=== PATIENT | female | born 1930 | race Caucasian/White ===

== ENCOUNTER → 2016-10-19 | Outpatient (CLI) | payer OTHER ==
[2016-10-19 08:28] LABS: CREATININE 0.9 mg/dL (0.6-1.0)
== END ==
LOC: CAT 07:03
PROVIDERS: Internal Medicine Cardiovascular Disease
DX: I71.2 Thoracic aortic aneurysm, without rupture (principal)

== ENCOUNTER → 2017-04-17 | Outpatient (CLI) | payer OTHER | LOC: CV 09:46 → RAD 09:46 | DX: Z12.31 Encounter for screening mammogram for malignant neoplasm of breast (principal); N95.9 Unspecified menopausal and perimenopausal disorder; R07.2 Precordial pain; Z78.0 Asymptomatic menopausal state ==

== ENCOUNTER → 2018-08-14 | Outpatient (CLI) | payer OTHER ==
--- NOTE | 2018-08-14 16:21 | 2DMMODE ---
[facility] [address] [place] [address] 2 D/M-MODE ECHOCARDIOGRAM Name: LULU AVERY Room #: REG [facility]#: [id number] ������������� Admission: 08/14/18 ������������� Attend Phys: Julien Douglass, Discharge: ��� ������������� ��� Date of : 34 Date of Service: 08/14/18 1621 �� Report #: [id number] �������� ��������������������������������������������[id number] THIS REPORT FOR: //name// APPROVED REPORT Study performed: 08/14/2018 10:09:20 EXAM: Comprehensive 2D, Doppler, and color-flow Echocardiogram Patient Location: Out-Patient Status: routine BSA: 1.59 HR: 64 bpm BP: 120/84 mmHg Rhythm: NSR Other Information Study Quality: Adequate Indications Congestive Heart Failure Atrial Fibrillation Aortic aneurysm. 2D Dimensions RVDd: 27.76 mm IVSd: 11.16 (7-11mm) LVOT Diam: 22.06 (18-24mm) LVDd: 53.91 mm PWd: 11.14 (7-11mm) Ascending Ao: 42.28 (22-36mm) LVDs: 36.82 (25-40mm) Aortic Root: 38.78 mm Volumes Left Atrial Volume (Systole) Single Plane 4CH: 78.61 mL Single Plane 2CH: 98.47 mL LA ESV Index: 59.00 mL/m2 Aortic Valve AoV Peak Nathan.: 1.28 m/s AO Peak Gr.: 6.54 mmHg LVOT Max P.36 mmHg LVOT Max V: 1.26 m/s YOVANA Vmax: 3.77 cm2 Mitral Valve E/A Ratio: 1.4 [facility] [address] [place] [address] 2 D/M-MODE ECHOCARDIOGRAM Name: LULU AVERY Room #: REG [facility]#: [id number] ������������� Admission: 08/14/18 ������������� Attend Phys: Julien Douglass, Discharge: ��� ������������� ��� Date of : 34 Date of Service: 08/14/18 1621 �� Report #: [id number] �������� ��������������������������������������������[id number] MV Decel. Time: 184.71 ms MV E Max Nathan.: 1.13 m/s MV A Nathan.: 0.78 m/s MV PHT: 53.57 ms IVRT: 92.27 ms Pulmonary Vein P Vein S: 0.64 m/s P Vein D: 0.50 m/s P Vein S/D Ratio: 1.28 Tricuspid Valve TR Peak Nathan.: 2.44 m/s RAP Estimate: 5.00 mmHg TR Peak Gr.: 23.89 mmHg PA Pressure: 29.00 mmHg Left Ventricle The left ventricle is normal size. There is normal LV segmental wall motion. Mild basal septal hypertrophy is present. Left ventricular systolic function is normal. LVEF is 60-65%. Left ventricular filling pattern is normal for age. Right Ventricle The right ventricle is normal size. The right ventricular systolic function is normal. Atria Left atrium is moderately dilated. The right atrium size is normal. Aortic Valve Aortic valve is trileaflet. Mild aortic regurgitation. There is no aortic valvular stenosis. Mitral Valve Mitral valve leaflets are moderately thickened. 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 Mild bi-leaflet mitral valve prolapse. Tricuspid Valve The tricuspid valve is normal in structure. Mild tricuspid regurgitation. Estimated PAP is 30mmHg. Pulmonic Valve The pulmonary valve is normal in structure. Mild to moderate pulmonic [facility] [address] [place] [address] 2 D/M-MODE ECHOCARDIOGRAM Name: LULU AVERY Room #: REG [facility]#: [id number] ������������� Admission: 08/14/18 ������������� Attend Phys: Julien Douglass, Discharge: ��� ������������� ��� Date of : 34 Date of Service: 08/14/18 1621 �� Report #: [id number] �������� ��������������������������������������������[id number] regurgitation. 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 IVC is normal in size and collapses >50% with inspiration. Pericardium There is no pericardial effusion. <Conclusion> Mild basal septal hypertrophy is present. LVEF is 60-65%. There is normal LV segmental wall motion. Mitral valve leaflets are moderately thickened. Mild bi-leaflet mitral valve prolapse. No evidence of mitral valve stenosis. 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 Mild aortic regurgitation. There is no aortic valvular stenosis. anterior mitral leaflet prolapse ��������������������������������������������� <ELECTRONICALLY SIGNED> ���������������������������������������� By: Julien Douglass MD, FACC ��������������������������������������������� 08/14/181620 20 20 Julien Douglass MD, FACC /INF
== END ==
LOC: CV 09:36
DX: I08.8 Other rheumatic multiple valve diseases (principal); I48.0 Paroxysmal atrial fibrillation; I71.2 Thoracic aortic aneurysm, without rupture; I11.0 Hypertensive heart disease with heart failure; I50.9 Heart failure, unspecified; Z88.8 Allergy status to other drugs, medicaments and biological substances

== ENCOUNTER → 2018-08-26 | Outpatient (CLI) | payer OTHER | LOC: LAB 07:37 | PROVIDERS: Internal Medicine Cardiovascular Disease | DX: I71.2 Thoracic aortic aneurysm, without rupture (principal); I70.0 Atherosclerosis of aorta; N28.1 Cyst of kidney, acquired; N28.89 Other specified disorders of kidney and ureter; I25.10 Atherosclerotic heart disease of native coronary artery without angina pectoris; J98.4 Other disorders of lung; M47.814 Spondylosis without myelopathy or radiculopathy, thoracic region; K57.30 Diverticulosis of large intestine without perforation or abscess without bleeding; Z88.8 Allergy status to other drugs, medicaments and biological substances ==

== ENCOUNTER 2018-10-29 06:24 | Emergency (ER) | payer OTHER ==
[~2018-10-29] VITALS: Ht 154.9 cm; Wt 56.7 kg
[2018-10-29] MEDS ORDERED: LOPRESSOR50 PO (06:47)
[2018-10-29] MEDS ORDERED: LASIX 20 MG TAB20 MG PO (06:48)
[2018-10-29] MEDS ORDERED: POTASSIUM20 PO (06:48)
[2018-10-29 07:02] LABS: HEMOGLOBIN 8.9 gm/dL (12.0-15.0); MCH 27.8 pg (26.0-34.0); MCV 84.2 fL (80.0-100.0); PLATELET COUNT 371 thou/uL (150-400); RDW 17.6 % (10.5-14.5); WBC 4.5 thou/uL (4.0-11.0)
[2018-10-29 07:15] LABS: ANION GAP 11 mmol/L (7-16); BUN 18 mg/dL (7-18); CALCIUM 8.6 mg/dL (8.5-10.1); CHLORIDE 101 mmol/L (98-107); CO2 26 mmol/L (21-32); CREATININE 0.9 mg/dL (0.6-1.0); GLUCOSE 104 mg/dL (74-106); SODIUM 138 mmol/L (136-145)
[2018-10-29] MEDS ORDERED: XARELTO10 MG PO (07:19)
[2018-10-29] MEDS ORDERED: BRILINTA60 MG PO (07:20)
[2018-10-29] MEDS ORDERED: RYTHMOL PO (07:21)
[2018-10-29 07:24] LABS: MAGNESIUM 2.2 mg/dL (1.8-2.4); TROPONIN-I <0.06 ng/mL (<0.06)
[2018-10-29 08:02] LABS: ABSOLUTE NEUTROPHILS 2.1 thou/uL (1.4-8.2); ANISOCYTOSIS 1+; ATYPICAL LYMPHS 3 %; HYPOCHROMASIA 1+
[2018-10-29 08:03] LABS: POIKILOCYTOSIS SLIGHT
[2018-10-29 08:22] VITALS: BP 137/68
--- NOTE | 2018-10-30 07:53 | EKG ---
[place] [address] 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 : 1930 Requested By: Samm Cunningham Order Number: [id number] MD: Jay Palomo Measurements Intervals [place] Rate: 81 P: 22 [place]: 205 QRS: -25 QRSD: 105 T: 33 QT: 365 QTc: 424 Interpretive Statements Sinus rhythm Nonspecific ST segment abnormality No previous ECG available for comparison Electronically Signed On 10-30-2018 7:53:27 CDT by Jay Palomo [email or web address] ��������������������������������������������� <ELECTRONICALLY SIGNED> ���������������������������������������� By: Jay Palomo MD, [facility] ��������������������������������������������� 10/30/18 0753 [id number] 0635 Jay Palomo MD, FACC /EPI
== END 2018-10-29 07:50 | disposition home or self-care (01) ==
LOC: ER 06:24
PROVIDERS: Emergency Medicine
DX: R00.2 Palpitations (principal); I10 Essential (primary) hypertension; I48.91 Unspecified atrial fibrillation; Z88.8 Allergy status to other drugs, medicaments and biological substances

== ENCOUNTER 2020-01-13 10:06 | Emergency (ER) | payer OTHER ==
[~2020-01-13] VITALS: Ht 154.9 cm; Wt 54.4 kg
[~2020-01-13 10:06] MED LIST: BRILINTA60 MG PO; LASIX 20 MG TAB20 MG PO; LOPRESSOR50 PO; POTASSIUM20 PO; RYTHMOL PO; XARELTO10 MG PO
[2020-01-13 11:11] LABS: ABSOLUTE NEUTROPHILS 3.3 thou/uL (1.4-8.2); HEMATOCRIT 26.2 % (37.0-47.0); HEMOGLOBIN 8.2 gm/dL (12.0-15.0); LYMPHOCYTES 16.7 % (24.0-44.0); MCH 23.1 pg (26.0-34.0); MCHC 31.2 g/dL (28.0-37.0); MCV 74.1 fL (80.0-100.0); MONOCYTES 6.4 % (1.0-8.0); PLATELET COUNT 370 thou/uL (150-400); POLYS 75.9 % (36.0-66.0); RBC 3.53 mil/uL (4.20-5.00); RDW 18.4 % (10.5-14.5); WBC 4.4 thou/uL (4.0-11.0)
[2020-01-13 11:22] LABS: ANION GAP 12 mmol/L (7-16); BUN 14 mg/dL (7-18); CALCIUM 8.3 mg/dL (8.5-10.1); CHLORIDE 100 mmol/L (98-107); CO2 25 mmol/L (21-32); CREATININE 0.6 mg/dL (0.6-1.0); GLUCOSE 136 mg/dL (74-106); POTASSIUM 4.4 mmol/L (3.5-5.1); SODIUM 137 mmol/L (136-145)
[2020-01-13 11:32] LABS: ALBUMIN 3.8 g/dL (3.4-5.0); SGOT 24 U/L (15-37); SGPT 20 U/L (30-65); TOTAL BILIRUBIN 0.5 mg/dL (0.2-1.0); TOTAL PROTEIN 7.6 g/dL (6.4-8.2); TROPONIN-I <0.06 ng/mL (<0.06)
[2020-01-13] MEDS ORDERED: MECLIZINE HCL25 M1 PO (13:11)
[2020-01-13 13:18] VITALS: BP 131/62
[2020-01-13 13:35] LABS: ANISOCYTOSIS 2+
[2020-01-13 13:36] LABS: HYPOCHROMASIA 1+; MICROCYTES 1+
--- NOTE | 2020-01-13 14:46 | EKG ---
[facility] [place] [address] ELECTROCARDIOGRAM REPORT Name: LULU AVERY [id number] Admission: 01/13/20 Attend Phys: Discharge: 01/13/20 Date of : 34 Report #: [id number] THIS REPORT FOR: cc: Nadine Kevin MD, Karla L. 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1930 Requested By: Manish Angelo Order Number: [id number] MD: Jay Palomo Measurements Intervals [place] Rate: 98 P: 52 ND: 191 QRS: -14 QRSD: 104 T: 44 QT: 366 QTc: 468 Interpretive Statements Sinus rhythm Frequent supraventricular complexes Compared to ECG 10/29/2018 06:35:23 Atrial premature complex(es) now present Electronically Signed On 01-13-2020 14:46:08 CDT by Jay Palomo [email or web address] <ELECTRONICALLY SIGNED> By: Jay Palomo MD, [facility] 01/13/20 1446 1131 1131 Jay Palomo MD, [facility] /EPI
== END 2020-01-13 13:18 | disposition home or self-care (01) ==
LOC: ER 10:06
PROVIDERS: Emergency Medicine
DX: H81.399 Other peripheral vertigo, unspecified ear (principal); R11.2 Nausea with vomiting, unspecified; I10 Essential (primary) hypertension; I48.91 Unspecified atrial fibrillation; Z79.899 Other long term (current) drug therapy; Z88.8 Allergy status to other drugs, medicaments and biological substances

== ENCOUNTER → 2020-02-13 | Outpatient (CLI) | payer OTHER ==
[~2020-02-13] MED LIST changes: +MECLIZINE HCL25 M1 PO
[2020-02-13 10:16] LABS: CREATININE 0.7 mg/dL (0.6-1.0)
== END ==
LOC: MRI 08:57
PROVIDERS: ATTEND Internal Medicine
DX: G31.89 Other specified degenerative diseases of nervous system (principal); I63.29 Cerebral infarction due to unspecified occlusion or stenosis of other precerebral arteries